=== PATIENT | male | born 1955 | race Caucasian/White ===

== ENCOUNTER 2016-09-19 14:04 | Inpatient (IN) ==
[2016-09-19] MEDS ORDERED: ASPIRIN 325 MG TABLET PO STA (14:35)
[2016-09-19] MEDS ORDERED: METOPROLOL TARTRATE 5 MG/5 ML VIAL IV STA (14:35)
--- NOTE | 2016-09-19 14:55 | Emergency Department Note ---
Jordy Bryant Brittany, am scribing for, and in the presence of, Reno Cabrales MD 14: 43. Samra Bryant James D, MD, personally performed the services described in this documentation, ascribed by Martha Spence in my presence, and it is both accurate and complete 449 . Arrival - Arrival Chief Complaint: Chest Pain Stated Complaint: n/v; weakness; chest pain; back pain ED Nursing Triage Note: Patient arrived via ems with complaint of n/v, weakness , chest pain, and back pain. Patient states he has chronic back pain. States he stopped taking suboxone due to vomiting. States his mid-sternal chest pain started hurting while at [facility]. Patient reports diaphoresis and nausea with chest pain. Describes pain as a sharp pain. Rates pain 8 out of 10 on pain scale. Mode of Arrival: Stretcher Limitations: No Limitations Source: Patient, RN Notes Reviewed Time Seen by Provider: 09/19/16 14:25 - History of Present Illness HPI Narrative: This is a 60 y/o white male,who presents to the ED with c/o CP which started 1 week ago. He localizes the pain to the mid sternum area of the chest. He describes the pain as a sharp pain. He reports the pain is worse with movement. Pt also complains of nausea and vomiting as well. He states he stopped taking his Suboxonedue to the vomiting. He states the vomiting started 10 days ago. Pt has no other complaints/pain in the ED at this time. Pt has a PMHx of HTN, CHF, CAD, cardiovascular problems, IDDM, dyslipidemia, GERD, back/neck problems, Polyps, and GI problems. Pt has had a cardiac cath, colonoscopy, orthopedic surgery. Pt denies a family medical Hx. Pt is a current every day smoker, he states he smokes 1/2 PPD. Onset (ago): week(s) (Started 1 week ago) Consistency: constant Quality: sharp Allergies/Adverse Reactions: Allergies Allergy/AdvReac Type Severity Reaction Status Date / Time Penicillins Allergy Verified 01/27/16 08:24 Home Medications: Home Medications Medication Instructions Recorded Confirmed Type Atorvastatin [Lipitor] 20 mg PO BEDTIME 01/27/16 09/19/16 History Cholecalciferol (Vitamin D3) 1,000 unit PO DAILY 01/27/16 09/19/16 History [Vitamin D3] Insulin Glargine [Lantus] 30 unit SUBCUT BEDTIME 01/27/16 09/19/16 History Lisinopril/Hydrochlorothiazide 0.5 each PO BID 01/27/16 09/19/16 History [Lisinopril-Hctz 20-12.5 mg Tab] [place]-3 Fatty Acids [Fish Oil 2 tablet PO DAILY 01/27/16 09/19/16 History Concentrate] Ondansetron Odt Tab [Zofran Odt] 4 mg PO Q6H PRN 01/27/16 09/19/16 History metFORMIN [Glucophage] 1,000 mg PO BID 01/27/16 09/19/16 History Aspirin [Ecotrin] 81 mg PO DAILY 09/19/16 09/19/16 History Insulin Regular, Human [NovoLIN R] See Protocol SUBCUT DAILY 09/19/16 09/19/16 History Montelukast Tab [Singulair Tab] 10 mg PO BID 09/19/16 09/19/16 History Review of System - Review of System 12 point system: reviewed and no additional remarkable complaints except as stated - Review of System Cardiovascular: Present: chest pain Gastrointestinal: Present: nausea, vomiting Medical,Surgical,& Family Hx - Medical History Cardio: History of: CHF, CAD, Hypertension, Cardiovascular Problems Psychological: History of: Anxiety Disorders, Depression Neurology: No history of: Seizures Endocrine: History of: Diabetes Mellitus (IDDM), Dyslipidemia Genitourinary: No history of: Kidney Stones Gastrointestinal: History of: GERD, Polyps, GI Problems (dysphagia) Musculoskeletal: History of: Back/Neck Problems (chronic back pain) Hematology: No history of: Blood Transfusion Reaction Other: No history of: Anesthesia Reactions, Cancer - Surgical History Cardiac Surgeries: Sugical HX of: Cardiac Surgery Patient Denies: Cardiac Catheterization HEENT Surgeries: Patient denies: Tonsilectomy & Adenoidectomy Abdominal Surgeries: Surgical HX of: Colonoscopy Patient denies: Appendectomy, Cholecystectomy Orthopedic Surgeries: Surgical HX of;: Orthopedic Surgery (shoulder x 2,knee scope,foot) - Social History Smoking Status: Current every day smoker Frequency of Alcohol Use: None Type of Drug Use: None Exam Vital Signs: Vital Signs Temperature 97.7 F 09/19/16 14:05 Pulse Rate 110 H 03/20/17 14:05 Respiratory Rate 13 09/19/16 14:05 Blood Pressure 123/77 09/19/16 14:05 O2 Sat by Pulse Oximetry 96 09/19/16 14:05 GENERAL: This is a chronically ill-appearing white male in no apparent distress. VITAL SIGNS: Reviewed HEENT: Head is atraumatic and normocephalic. Pupils are equal round react to light. Extraocular movements are intact. Oropharynx is benign with moist mucous membranes. NECK: Neck is soft and supple without tenderness. There are no masses. There is no lymphadenopathy. LUNGS: Lungs are clear to auscultation. Chest rises symmetrically. There is no chest wall tenderness. CV: Heart is rapid rate, regular rhythm without murmurs rubs or gallops. ABDOMEN: Abdomen is soft, nontender to palpation. There are no abdominal abnormal masses palpated. There is no organomegaly. Bowel sounds are present and active. SKIN: Skin is warm and dry. No rash. EXTREMITIES: Patient has full range of motion without tenderness. There is no pedal edema. NEUROLOGIC: Awake alert and oriented 4. Cranial nerves II through XII are grossly intact. Motor is 5 over 5 in all extremities bilaterally. Course - Consultations Consultation #1: Discussed with hospitalist. Patient will be admitted to their service. Time: 15:47 Results - Labs Lab Results: I have reviewed the patients labs Labs: Labs performed at [facility] and reviewed by me: Chemistry: Sodium 131, potassium 3.9, chloride 90, CO2 27, BUN 28, creatinine 0.63, lipase 35, magnesium 1.8, Troponin I: 0.12 CBC: WBCs 24,300, hemoglobin 17.4, hematocrit 48.1, platelet count 151,000, segs 75%, bands 15%, lymphocytes 8% - EKG EKG results: interpreted by ERMD - Impressions EKG: Sinus tachycardia with a rate of 108, nonspecific intraventricular conduction delay, left axis deviation, nonspecific ST-T wave changes. - Diagnostic Findings Procedure: Chest x-ray: image reviewed by me Disposition Clinical Impression: Coronary artery disease, Chest pain, Chronic pain syndrome, Diabetes mellitus Case discussed with: patient Disposition: Still a Patient Condition: Stable Time of Disposition: 15:46
[2016-09-19] MEDS ORDERED: ENOXAPARIN 80 MG/0.8 ML SYRINGE SUBCUT STA (15:03)
[2016-09-19] MEDS ORDERED: ONDANSETRON 4 MG/2 ML VIAL IV STA (15:03)
[2016-09-19] MEDS ORDERED: KETOROLAC 30 MG/1 ML VIAL IV STA (15:04)
[2016-09-19] MEDS ORDERED: ONDANSETRON 4 MG/2 ML VIAL ONE (15:19)
[2016-09-19] MEDS ORDERED: ENOXAPARIN 80 MG/0.8 ML SYRINGE SUBCUT ONE (15:19)
[2016-09-19] MEDS ORDERED: ASPIRIN 325 MG TABLET ONE (15:20)
[2016-09-19] MEDS ORDERED: METOPROLOL TARTRATE 5 MG/5 ML VIAL IV ONE (15:20)
[2016-09-19] MEDS ORDERED: KETOROLAC 30 MG/1 ML VIAL ONE (15:20)
[2016-09-19 15:35] LABS: Barbiturates Screen,Urine Negative (Negative); Benzodiazepines Screen,Urine Negative (Negative); Cannabinoid Screen,Urine Negative (Negative); Opiate Screen,Urine Negative (Negative); Phencyclidine Screen,Urine Negative (Negative)
[2016-09-19] MEDS ORDERED: DOCUSATE SODIUM 100 MG CAPSULE PO PRN (16:16)
[2016-09-19] MEDS ORDERED: ONDANSETRON 4 MG/2 ML VIAL IV PRN (16:16)
[2016-09-19] MEDS ORDERED: ACETAMINOPHEN 325 MG TABLET PO PRN (16:16)
[2016-09-19] MEDS ORDERED: MORPHINE 2 MG/1 ML SYRINGE IV PRN (16:16)
[2016-09-19 16:39] LABS: Risk Ratio 5.08; VLDL CHOLESTEROL 44.8 MG/DL
[2016-09-19] MEDS ORDERED: ONDANSETRON ODT 4 MG TABLET PO PRN (16:39)
[2016-09-19] MEDS ORDERED: PANTOPRAZOLE 40 MG TABLET PO ONE (16:40)
[2016-09-19] MEDS: SODIUM CHLORIDE 0.9% 1,000 ML IV SCH (16:46)
[2016-09-19] MEDS: PANTOPRAZOLE 40 MG TABLET PO SCH (16:49)
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
--- NOTE | 2016-09-19 18:07 | Ultrasound Report ---
US gallbladder Indication: Nausea/vomiting/right upper quadrant pain. Comparison: None. Technique: Multiple longitudinal and transverse real-time sonographic images of the right upper quadrant of the abdomen are obtained. Findings: The liver measures 21.6 cm and demonstrates increased echogenicity without focal abnormality. Moderate volume cholelithiasis. No significant gallbladder distention. The common duct measures 0.8 cm in diameter and there is no evidence of intrahepatic ductal dilation. Right kidney measures 12.6 cm. There is an exophytic complex cystic lesion off the superior pole of the right kidney which measures up to 5.8 cm with at least one septation measuring greater than 2 mm. Pancreas partially obscured by bowel gas. IMPRESSION: Hepatomegaly/hepatic steatosis. Cholelithiasis. There is mild prominence of the distal common duct. Consider ERCP or MRCP for further evaluation. There is a complex right renal cystic lesion which measures up to 5.8 cm. Recommend further evaluation with CT or MRI abdomen with and without contrast. This can be done on a nonemergent basis. PROCEDURE INTERPRETED AT [facility] DEPARTMENT OF RADIOLOGY Final Report Signed by: Dr Craig Eden
[2016-09-19] MEDS: metFORMIN 500 MG TABLET PO SCH (23:27)
[2016-09-19] MEDS: ATORVASTATIN 20 MG TABLET PO SCH (23:27)
[2016-09-19] MEDS: INSULIN GLARGINE 100 UNIT/ML SUBCUT SCH (23:27)
[2016-09-19] MEDS: MONTELUKAST 10 MG TABLET PO SCH (23:28)
[2016-09-19] MEDS: LISINOPRIL/HCTZ 20-12.5 MG TABLET PO SCH (23:28)
[2016-09-20 05:04] LABS: Basophils % 0.1 % (0.0-0.8); Hematocrit 44.7 VOL% (42.0-52.0); Hemoglobin 15.7 GM/DL (14.0-18.0); Immature Granulocytes % 0.5 %; Immature Granulocytes Absolute 0.08 #; Lymphocytes # 1.2 10*3/uL (1.4-4.0); Lymphocytes % 7.6 % (21.2-54.2); Mean Corpuscular HGB Conc 35.1 GM/DL (32-36); Mean Corpuscular Hemoglobin 27 PG (27-34); Mean Corpuscular Volume 78.1 FL (87-102); Monocytes # 1.2 10*3/uL (0.11-0.8); Monocytes % 7.8 % (1.7-12.7); Neutrophils # 12.8 10*3/uL (1.4-7.4); Platelet Count 121 T/CUMM (130-400); Red Blood Count 5.72 MC/CUMM (3.8-5.5); Red Cell Distribution Width 14.3 % (9.3-17.3); White Blood Count 15.2 T/CUMM (4-12)
[2016-09-20 05:27] LABS: Calcium 9.1 MG/DL (8.5-10.1); Magnesium 1.9 MG/DL (1.8-2.4); Osmolality,Calculated 290.7 MOS/KG (273-304); Potassium 3.4 MMOL/L (3.5-5.1)
[2016-09-20] MEDS: OMEGA 3 ACID ETHYL ESTERS 1 GM CAPSULE PO SCH ×3 (07:01→09:25)
[2016-09-20] MEDS: ASPIRIN EC 81 MG TABLET PO SCH ×2 (07:01→09:22)
[2016-09-20] MEDS: CHOLECALCIFEROL 1,000 UNIT TABLET PO SCH ×2 (07:01→09:22)
[2016-09-20] MEDS: INSULIN REGULAR 100 UNIT/ML SUBCUT SCH ×2 (07:02→09:29)
--- NOTE | 2016-09-20 07:38 | EKG Report ---
Stationary ECG Study [facility] ER Test Date: 09/19/2016 2:32:45 PM Pat Name: JACLYN MILTON Department: Room: 289 Gender: M Filling Winder: : 1955 Requested by: Reno Hahn Order Number: [id number] Reading MD: NISHA YOST Intervals [place] Rate: 108 P: -28 AR: 157 QRS: -69 QRSD: 146 T: 135 QT: 359 QTc: 423 Interpretive Statements SINUS TACHYCARDIA WITH OCCASIONAL VENTRICULAR PREMATURE COMPLEXES LBBB POSSIBLE LATERAL MYOCARDIAL INFARCTION, OF INDETERMINATE AGE INFERIOR MYOCARDIAL INFARCTION, OF INDETERMINATE AGE Electronically Signed On 09-20-16 14:11:52 CDT by NISHA YOST [email or web address]
[2016-09-20] MEDS: MONTELUKAST 10 MG TABLET PO SCH ×2 (09:21→20:45)
[2016-09-20] MEDS: metFORMIN 500 MG TABLET PO SCH ×2 (09:22→20:44)
[2016-09-20] MEDS: LISINOPRIL/HCTZ 20-12.5 MG TABLET PO SCH ×2 (09:22→20:43)
[2016-09-20] MEDS: PANTOPRAZOLE 40 MG TABLET PO SCH (09:22)
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
[2016-09-20] MEDS: SODIUM CHLORIDE 0.9% 1,000 ML IV SCH ×3 (09:30→23:28)
--- NOTE | 2016-09-20 10:12 | EKG Report ---
Stationary ECG Study [facility] Test Date: 09/20/2016 10:06:44 AM Pat Name: JACLYN MILTON Department: Room: 289 Gender: M Manager Configuration: GUSTAVO : 1955 Requested by: Cony Crocker Order Number: [id number] Reading MD: NISHA YOST Intervals [place] Rate: 83 P: 40 [place]: 147 QRS: 54 QRSD: 145 T: 164 QT: 402 QTc: 442 Interpretive Statements SINUS RHYTHM LBBB Electronically Signed On 09-21-16 20:49:46 CDT by NISHA YOST [email or web address]
[2016-09-20 10:25] LABS: Troponin I Only 0.116 NG/ML (0.00-0.045)
[2016-09-20 10:41] LABS: Albumin 2.7 G/DL (3.4-5.0); Bilirubin,Direct 0.1 MG/DL (0.0-0.20); Bilirubin,Indirect 0.3 MG/DL (0.0-1.0); Bilirubin,Total 0.4 MG/DL (0.2-1.0); Total Protein 5.4 G/DL (6.4-8.3)
[2016-09-20 12:31] LABS: Troponin I Only 0.116 NG/ML (0.00-0.045)
--- NOTE | 2016-09-20 14:22 | Hospitalist Progress Note ---
Assessment and Plan - Time spent with patient Time spent with patient: Greater than 30 minutes (1) Chest pain Status: Acute Assessment and plan: Cardiology is involved. Troponins are mildly elevated. Current Visit: Yes (2) Elevated troponin I level Status: Acute Assessment and plan: Defer to cardiology appreciate their assistance. Current Visit: Yes (3) Right upper quadrant pain Status: Acute Assessment and plan: Ultrasound reveals mildly elevated CBD size. Will obtain an MRCP. Current Visit: Yes (4) Coronary artery disease Status: Chronic Assessment and plan: Continue current management. Current Visit: Yes (5) Diabetes mellitus Status: Chronic Assessment and plan: Continue current management. Current Visit: Yes Hospitalist: Subjective Interval history: Patient reports that he still has right upper quadrant abdominal pain, spent the next 5 minutes talking about his pain regimen at home. Appears very comfortable. States he has not eaten for several days. Exam - Constitutional Vitals: Period Temp Pulse Resp BP Sys/Medel Pulse Ox Last 24 Hr 97.9 F-100.4 F 66-109 12-20 105-147/63-93 95-100 General appearance: no acute distress - Head Head exam: Present: normocephalic, atraumatic - Eye Eye exam: Present: EOMI Pupils: Present: GEMA - ENT ENT exam: Present: normal exam - Neck Neck exam: Present: normal inspection - Respiratory Respiratory exam: Present: clear to auscultation bilaterally. Absent: rhonchi, wheezes - Cardiovascular Cardiovascular exam: Present: regular rate and rhythm. Absent: gallop, rubs, systolic murmur - GI/Abdominal GI/Abdominal exam: Present: normal bowel sounds, tenderness, soft. Absent: distended, firm, guarding, rebound - Extremities Exam Extremities exam: Present: normal inspection. Absent: calf tenderness, edema Results - Labs CBC & BMP: 09/20/16 04:41 09/20/16 04:41 Lab Results: I have reviewed the past 24 hour labs Quality Measures - Stroke Symptom Onset Unknown: No
[2016-09-20] MEDS: HYDROmorphone 2 MG/1 ML VIAL IV PRN ×3 (14:36→23:43)
[2016-09-20] MEDS: POTASSIUM CHLORIDE RIDER 10 MEQ in PREMIX 1 EACH IV SCH ×3 (14:41→17:57)
--- NOTE | 2016-09-20 15:12 | XRay Report ---
XR chest 1V portable Indication: Chest pain, leukocytosis Comparison: 26 September 2012 Findings: The heart and mediastinum are stable in size and configuration with cardiac surgery changes. The pulmonary vascularity is normal in caliber. Lung volumes are increased with prominent bronchial markings. No lung infiltrates, effusions, pneumothorax or other abnormality is demonstrated. Impression: Chronic lung and cardiac surgery changes. No acute process or significant change. PROCEDURE INTERPRETED AT [facility] DEPARTMENT OF RADIOLOGY Final Report Signed by: Dr. Hernesto Chamberlain
[2016-09-20 15:56] LABS: Troponin I Only 0.103 NG/ML (0.00-0.045)
[2016-09-20] MEDS: CARVEDILOL 3.125 MG TABLET PO SCH ×2 (16:28→20:44)
--- NOTE | 2016-09-20 16:31 | Magnetic Resonance Report ---
MRI abdomen Indication: Abnormal common bile duct next Technique: Axial, sagittal and coronal imaging of the abdomen was performed without contrast. Computer reformatting of the biliary system is generated. Findings: Few calculi are seen in the dependent gallbladder. Gallbladder otherwise appears normal for MRI. No distinct hepatic or pancreatic lesions are seen. The pancreas evaluation somewhat limited from breathing motion artifact. There is suggestion of some edema around the pancreas. Biliary duct caliber is estimated 7 mm and appears within normal limits. The pancreatic duct also shows no evidence of abnormality and measures estimated 1 mm. There is a cyst in the right kidney. The remainder of the kidneys that are visualized appear within normal limits. Impression: Cholelithiasis. Simple-appearing right renal cyst. Pancreas detail is limited but there is suggestion of edema around the pancreas. No other abnormality seen. Correlate with CT to evaluate for pancreatitis. PROCEDURE INTERPRETED AT [facility] DEPARTMENT OF RADIOLOGY Final Report Signed by: Dr. Hernesto Chamberlain
--- NOTE | 2016-09-20 16:50 | ECHO Report ---
Omer Crandall Exam Date: 09/20/2016 09:28 Referring Physician: Technologist: Danielle RANGEL Age: 60 Ht (in): Wt (lb): Gender: M Exam Location: [facility] Echo Indications: chest pain, diabetes, elevated troponin, CAD BP: / HR: Rhythm: Sinus Technical Quality: Good IMPRESSIONS Moderate to 3+ concentric left ventricular hypertrophy with diastolic dysfunction. Left ventricular ejection fraction is estimated at 30-40 %. The right atrium is mildly enlarged. The left atrium is mildly to 2+ enlarged. Mild to moderate mitral valve sclerosis. Trace mitral valve regurgitation. Mild aortic valve sclerosis. Trace aortic valve regurgitation. Trace tricuspid valve regurgitation. Trace pulmonary valve regurgitation. MEASUREMENTS (Male / Female) Normal Values 2D ECHO LV Diastolic Diameter PLAX 5.3 cm 4.2 - 5.9 / 3.9 - 5.3 cm LV Systolic Diameter PLAX 4.2 cm LV Fractional Shortening PLAX 20.3 % IVS Diastolic Thickness 1.8 cm 0.6 - 1.0 / 0.6 - 0.9 cm LVPW Diastolic Thickness 1.5 cm 0.6 - 1.0 / 0.6 - 0.9 cm RV Internal Dim ED PLAX 3.4 cm Aortic Root Diameter 2.8 cm LA Systolic Diameter LX 4.0 cm 3.0 - 4.0 / 2.7 - 3.8 cm DOPPLER TR Peak Velocity 115.0 cm/s TR Peak Gradient 5.3 mmHg FINDINGS Left Ventricle Mildly increased left ventricular cavity size. Moderate to 3+ concentric left ventricular hypertrophy with diastolic dysfunction. Left ventricular ejection fraction is estimated at 30-40 %. Right Ventricle borderline Mildly increased right ventricular size. Right Atrium The right atrium is mildly enlarged. Left Atrium The left atrium is mildly to 2+ enlarged. Mitral Valve Mild to moderate mitral valve sclerosis. Trace mitral valve regurgitation. Aortic Valve Mild aaortic valve sclerosis. Trace aortic valve regurgitation. Tricuspid Valve Morphologically normal tricuspid valve. Trace tricuspid valve regurgitation. Pulmonic Valve Morphologically normal pulmonic valve. Trace pulmonary valve regurgitation. Pericardium No pericardial effusion. Aorta Normal size aortic root and proximal ascending aorta. Pablo King MD (Electronically Signed) Final Date: 20 September 2016 16:49
[2016-09-20] MEDS: ATORVASTATIN 20 MG TABLET PO SCH (20:44)
[2016-09-20] MEDS: INSULIN GLARGINE 100 UNIT/ML SUBCUT SCH (20:44)
[2016-09-21] MEDS: CARVEDILOL 3.125 MG TABLET PO SCH ×4 (03:58→20:41)
[2016-09-21] MEDS: HYDROmorphone 2 MG/1 ML VIAL IV PRN ×5 (03:58→20:38)
[2016-09-21] MEDS: SODIUM CHLORIDE 0.9% 1,000 ML IV SCH ×4 (05:04→23:25)
[2016-09-21 05:06] LABS: Basophils % 0.2 % (0.0-0.8); Eosinophils # 0.1 10*3/uL (0.0-0.87); Eosinophils % 0.5 % (0.00-10.9); Hematocrit 40.6 VOL% (42.0-52.0); Hemoglobin 13.9 GM/DL (14.0-18.0); Immature Granulocytes % 0.4 %; Immature Granulocytes Absolute 0.04 #; Lymphocytes # 1.1 10*3/uL (1.4-4.0); Lymphocytes % 10.6 % (21.2-54.2); Mean Corpuscular HGB Conc 34.2 GM/DL (32-36); Mean Corpuscular Hemoglobin 28 PG (27-34); Mean Platelet Volume 11.2 FL (9.6-12.0); Monocytes # 0.9 10*3/uL (0.11-0.8); Monocytes % 8.1 % (1.7-12.7); Neutrophils # 8.6 10*3/uL (1.4-7.4); Neutrophils % 80.2 % (38.7-73.9); Platelet Count 111 T/CUMM (130-400); Red Blood Count 5.01 MC/CUMM (3.8-5.5); Red Cell Distribution Width 14.4 % (9.3-17.3); White Blood Count 10.7 T/CUMM (4-12)
[2016-09-21 05:47] LABS: Calcium 8.6 MG/DL (8.5-10.1); Magnesium 1.8 MG/DL (1.8-2.4); Osmolality,Calculated 291.4 MOS/KG (273-304); Potassium 3.4 MMOL/L (3.5-5.1)
--- NOTE | 2016-09-21 07:33 | EKG Report ---
Stationary ECG Study [facility] Test Date: 09/21/2016 7:33:28 AM Pat Name: JACLYN MILTON Department: Room: 289 Gender: M [employer] Sales Director: DORIS : 1955 Requested by: Pablo King Order Number: [id number] Reading MD: MARY MENDOSA Intervals [place] Rate: 76 P: -8 [place]: 153 QRS: -48 QRSD: 150 T: 150 QT: 392 QTc: 423 Interpretive Statements SINUS RHYTHM WITH OCCASIONAL VENTRICULAR PREMATURE COMPLEXES Atypical LBBB Repol changes suggestive of ischemia Electronically Signed On 09-22-16 21:03:12 CDT by MARY MENDOSA [id number]
[2016-09-21] MEDS: ASPIRIN EC 81 MG TABLET PO SCH (08:24)
[2016-09-21] MEDS: LISINOPRIL/HCTZ 20-12.5 MG TABLET PO SCH ×2 (08:24→20:43)
[2016-09-21] MEDS: CHOLECALCIFEROL 1,000 UNIT TABLET PO SCH (08:24)
[2016-09-21] MEDS: metFORMIN 500 MG TABLET PO SCH ×2 (08:25→21:11)
[2016-09-21] MEDS: MONTELUKAST 10 MG TABLET PO SCH ×2 (08:26→20:44)
[2016-09-21] MEDS: PANTOPRAZOLE 40 MG TABLET PO SCH (08:26)
[2016-09-21] MEDS: OMEGA 3 ACID ETHYL ESTERS 1 GM CAPSULE PO SCH (08:27)
[2016-09-21] MEDS: INSULIN REGULAR 100 UNIT/ML SUBCUT SCH (08:28)
--- NOTE | 2016-09-21 11:12 | Gastrointestinal Consult Note ---
<KeithmikaSunni Jovani - Last Filed: 09/21/16 11:03> Assessment and Plan (1) Abdominal pain Status: Acute Assessment and plan: 09/21-Sudden onset of right upper quadrant pain with intractable nausea and vomiting 2 weeks. Findings on ultrasound of cholelithiasis and mildly dilated common bile duct. MRCP findings noted of cholelithiasis. Normal LFTs at present time. Surgery has been consulted by Dr. king. Plan an addendum to follow by Dr. Barcenas Current Visit: Yes History of Present Illness Chief complaint: Nausea, vomiting, abdominal pain History of present illness: Mr. Crandall is a 60 year old male who presented to the hospital 2 days ago with chest pain. Patient has a history of diabetes, coronary artery disease with CABG 10 years ago, chronic pain issues, and hypertension. Patient states that 2 weeks ago he had a sudden onset of intractable nausea and vomiting. States that he was unable to keep anything down and every time he tried to eat he would vomit. Patient states he vomited up large amounts of bile and at times black looking emesis but denies any blood noted during that time. Patient also had onset of right upper quadrant abdominal pain that he states was severe at times. Since onset he has lost 20 pounds due to inability to eat. He is treated by Dr. Jesus in [place] for his chronic pain and was on Suboxone therapy however states he stopped this he began his nausea and vomiting. Patient states he had problems with his gallbladder 15 years ago and he was to have it removed however he decided not to do it at that time. He states the pain he has had is very similar to the pain he had 15 years ago. Patient does report an increase in his reflux over the last several months despite taking his Protonix regularly. Denies taking NSAIDs regularly other than occasional Motrin. Denies melena or hematochezia. Denies dysphagia. On admission he had mildly elevated troponin levels however cardiology consulted with the patient and feels this is noncardiac related at this time. Dr. King his also stated patient okay to proceed with surgical intervention if necessary. Gallbladder ultrasound shows hepatomegaly, cholelithiasis, and mild prominent common bile duct at 8 mm. He also had an MRCP on yesterday which showed cholelithiasis with common bile duct at 7 mm and no distinct ductal abnormality. Suggestion of pancreatic edema mentioned. Patient's liver enzymes noted to be normal on yesterday however no admitting liver enzymes noted at our facility are at [facility] where patient was seen prior to being transferred here. Patient states he has had recent upper and lower endoscopy done at [place] through the [place] and was told to return in 5 years for repeat colonoscopy. Home Medications Medication Instructions Recorded Confirmed Type Atorvastatin [Lipitor] 20 mg PO BEDTIME 01/27/16 09/19/16 History Cholecalciferol (Vitamin D3) 1,000 unit PO DAILY 01/27/16 09/19/16 History [Vitamin D3] Insulin Glargine [Lantus] 30 unit SUBCUT BEDTIME 01/27/16 09/19/16 History Lisinopril/Hydrochlorothiazide 0.5 each PO BID 01/27/16 09/19/16 History [Lisinopril-Hctz 20-12.5 mg Tab] [place]-3 Fatty Acids [Fish Oil 2 tablet PO DAILY 01/27/16 09/19/16 History Concentrate] Ondansetron Odt Tab [Zofran Odt] 4 mg PO Q6H PRN 01/27/16 09/19/16 History metFORMIN [Glucophage] 1,000 mg PO BID 01/27/16 09/19/16 History Aspirin [Ecotrin] 81 mg PO DAILY 09/19/16 09/19/16 History Insulin Regular, Human [NovoLIN R] See Protocol SUBCUT DAILY 09/19/16 09/19/16 History Montelukast Tab [Singulair Tab] 10 mg PO BID 09/19/16 09/19/16 History Allergies Allergy/AdvReac Type Severity Reaction Status Date / Time Penicillins Allergy Verified 01/27/16 08:24 Medical,Surgical,& Family Hx - Medical History Cardio: History of: CHF, CAD, Hypertension, Cardiovascular Problems Psychological: History of: Anxiety Disorders, Depression Neurology: No history of: Seizures Endocrine: History of: Diabetes Mellitus (IDDM), Dyslipidemia Genitourinary: No history of: Kidney Stones Gastrointestinal: History of: GERD, Polyps, GI Problems (dysphagia) Musculoskeletal: History of: Back/Neck Problems (chronic back pain) No history of: Amputation Hematology: No history of: Blood Transfusion Reaction Other: No history of: Anesthesia Reactions, Cancer - Surgical History Cardiac Surgeries: Sugical HX of: Cardiac Surgery Patient Denies: Cardiac Catheterization Thoracic Surgeries: Patient denies;: Lobectomy HEENT Surgeries: Patient denies: Tonsilectomy & Adenoidectomy Abdominal Surgeries: Surgical HX of: Colonoscopy Patient denies: Appendectomy, Cholecystectomy Reproductive Surgeries: Patient denies;: Genitourinary Surgery Orthopedic Surgeries: Surgical HX of;: Orthopedic Surgery (shoulder x 2,knee scope,foot) - Social History Smoking Status: Current every day smoker Frequency of Alcohol Use: None Type of Drug Use: None 12 point system: reviewed and no additional remarkable complaints except as stated - Constitutional Constitutional: Present: as per HPI, weight loss - EENT Eyes: Present: as per HPI Ears: Present: as per HPI Nose, mouth and throat: Present: as per HPI - Cardiovascular Cardiovascular: Present: as per HPI - Respiratory Respiratory: Present: as per HPI - Gastrointestinal Gastrointestinal: Present: as per HPI, abdominal pain, heartburn, nausea, vomiting - Genitourinary Genitourinary: Present: as per HPI - Musculoskeletal Musculoskeletal: Present: as per HPI, back pain - Neurological Neurological: Present: as per HPI - Psychiatric Psychiatric: Present: as per HPI - Endocrine Endocrine: Present: as per HPI - Hematologic/Lymphatic Hematologic/Lymphatic: Present: as per HPI Exam - Constitutional Vitals: Period Temp Pulse Resp BP Sys/Medel Pulse Ox Last 24 Hr 97.9 F-99.2 F 74-101 18-20 109-152/53-74 93-96 General appearance: normal weight, no acute distress - Head Head exam: Present: normal inspection, normocephalic - Eye Eye exam: Present: other (Lids and conjunctivae unremarkable). Absent: scleral icterus - ENT ENT exam: Present: normal exam, normal oropharynx - Neck Neck exam: Present: normal inspection - Respiratory Respiratory exam: Present: clear to auscultation bilaterally. Absent: rales, rhonchi, wheezes - Cardiovascular Cardiovascular exam: Present: regular rate and rhythm. Absent: diastolic murmur , JVD, systolic murmur - GI/Abdominal GI/Abdominal exam: Present: normal bowel sounds, tenderness (Right upper quadrant), soft. Absent: ascites, distended, mass, organomegaly - Extremities Exam Extremities exam: Present: normal inspection, full ROM - Back Exam Back exam: Present: normal inspection - Neurological Exam Neurological exam: Present: alert, oriented X3 - Psychiatric Psychiatric exam: Present: normal affect, normal mood - Skin Skin exam: Present: normal color, warm, dry Results - Labs CBC & BMP: 09/21/16 04:57 09/21/16 04:57 Lab Results: I have reviewed the past 24 hour labs - Diagnostic Findings Procedure: MRI: report reviewed by me, Ultrasound: report reviewed by me Quality Measures - Stroke Symptom Onset Unknown: No <Chapo Barcenas - Last Filed: 09/21/16 12:41> History of Present Illness History of present illness: Mr. Crandall is a 60 year old male Exam - Constitutional Vitals: Period Temp Pulse Resp BP Sys/Medel Pulse Ox Last 24 Hr 97.9 F-99.2 F 74-101 18-20 109-152/53-74 93-98 Results - Labs CBC & BMP: 09/21/16 04:57 09/21/16 04:57
--- NOTE | 2016-09-21 11:30 | Cardiology Progress Note ---
Assessment and Plan - Time spent with patient Time spent with patient: Less than 30 minutes (1) Elevated troponin I level Status: Acute Assessment and plan: His troponin in series, are flat. This is not ACS. Potassium is low. We will place him on potassium and magnesium replacement protocol. Current Visit: Yes (2) Right upper quadrant pain Status: Acute Assessment and plan: Hospital medicine following. Cholelithiasis and hepatomegaly/hepatic steatosis noted on abdominal ultrasound. We consulted GI and general surgery this morning to see him. We appreciate their input. Current Visit: Yes (3) History of ischemic cardiomyopathy Status: Chronic Assessment and plan: Last documented ejection fraction was 10/27/07 with EF of 20%. Patient has not followed with Dr. Mejia since 2009. He has a previous history of noncompliance per his old records. Repeat echocardiogram on 09/20/2016 revealed EF is improved 30-40%. He was also noted to have moderate to 3+ concentric left ventricular hypertrophy with diastolic dysfunction, mildly enlarged right atrium, mild to 2+ enlargement of left atrium, mild to moderate mitral valve sclerosis, trace mitral regurgitation , mild aortic sclerosis, trace aortic, tricuspid, and pulmonic regurgitation. 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 Storm on 05/22/07. Current Visit: Yes (5) Coronary artery disease Status: Chronic Assessment and plan: Patient underwent CABG x2 with TRISTEN to anterior descending coronary artery and a SVG to right posterior descending coronary artery by Dr. Storm on 05/22/07. Current Visit: Yes (6) GERD (gastroesophageal reflux disease) Status: Chronic Assessment and plan: Continue Protonix. Hospital medicine following. GI has been consulted. Current Visit: Yes (7) Chronic hypertension Status: Chronic Assessment and plan: Currently well controlled. Will monitor and adjust medications as needed. Current Visit: Yes (8) Chronic pain syndrome Status: Chronic Assessment and plan: This is managed by Dr. Jesus in [place]. Will defer further treatment to hospital medicine. Current Visit: Yes (9) Diabetes mellitus Status: Chronic Assessment and plan: Has had elevated blood sugar readings. Is on sliding scale insulin. Hospital medicine following. Current Visit: Yes (10) Tobacco abuse Status: Chronic Current Visit: Yes Cardiology - PN: Subj Interval history: Mr. Raz reports he did not have a restful night. He reports his back hurt all throughout the night. He tells me that his nausea is a little better. He was able to eat a full supper last night. I suspect he has cholelithiasis. His troponin in series, are flat. This is not ACS. His EF is improved from 20% to 30-40% per echo done yesterday. He was also noted to have moderate to 3+ concentric left ventricular hypertrophy with diastolic dysfunction, mildly enlarged right atrium, mild to 2+ enlargement of left atrium, mild to moderate mitral valve sclerosis, trace mitral regurgitation, mild aortic sclerosis, trace aortic, tricuspid, and pulmonic regurgitation. If the patient needs to undergo gallbladder surgery soon, okay from cardiology standpoint. We have consulted GI and general surgery to see him today. We appreciate their input. Exam (Progress Note) - Constitutional Vitals: Period Temp Pulse Resp BP Sys/Medel Pulse Ox Last 24 Hr 97.9 F-99.2 F 74-101 18-20 109-152/53-74 93-96 Exam: General: Present: Appears Well, No Apparent Distress. Pleasant and cooperative. Appears uncomfortable due to nausea. HEENT: Present: PERRL, Normocephaly, atraumatic. Mucus Membranes Moist. Conjunctiva moist and clear, sclerae anicteric Neck: Present: Supple Neck, Midline Trachea, No Masses, No Bruit Cardiac: Present: Regular Rate and Rhythm, No Murmur Lungs: Present: Clear to auscultation bilaterally, no wheeze, rhonchi, rales. Neuro: Present: Awake, alert, and oriented x3. Moves all extremities well without hemiparesis or paralysis. Grossly Intact. Absent: Resting Tremor, Essential Tremor Abdomen: Present: Soft, Active Bowel Sounds, No Masses, epigastric and right upper quadrant tenderness noted. Skin: Present: Clear. Absent: Rash, No skin breakdown. Musculoskeletal: Present: No Fluid Collection, No Pain, Normal Range of Motion Extremities: Present: Normal Gait, No Clubbing, No Cyanosis, Upper Extr. Pulses 2+, Lower Extr. Pulses 2+, No edema. Capillary refill less than 3 seconds. Result/EKG - Labs CBC & BMP: 09/21/16 04:57 09/21/16 04:57 Lab Results: I have reviewed the past 24 hour labs Labs: Laboratory Results - last 24 hr 09/20/16 09/20/16 09/20/16 11:46 11:50 15:04 WBC RBC Hgb Hct MCV MCH MCHC RDW Plt Count MPV Neut % (Auto) Lymph % (Auto) [place] % (Auto) Eos % (Auto) Baso % (Auto) Neut # (Auto) Lymph # (Auto) [place] # (Auto) Eos # (Auto) Baso # (Auto) Immature Gran % Nucleated RBC % Immature Gran # Nucleated RBCs # Sodium Potassium Chloride Carbon Dioxide Anion Gap BUN Creatinine GFR Calculation BUN/Creatinine Ratio Glucose POC Glucose 222 H Calculated Osmolality Calcium Magnesium Total Creatine Kinase 23 L 26 L CK-MB (CK-2) 2.1 2.3 Troponin I 0.116 H 0.103 H 09/20/16 09/21/16 09/21/16 20:34 04:57 04:57 WBC 10.7 RBC 5.01 Hgb 13.9 L Hct 40.6 L MCV 81.0 L MCH 28 MCHC 34.2 RDW 14.4 Plt Count 111 L MPV 11.2 Neut % (Auto) 80.2 H Lymph % (Auto) 10.6 L [place] % (Auto) 8.1 Eos % (Auto) 0.5 Baso % (Auto) 0.2 Neut # (Auto) 8.6 H Lymph # (Auto) 1.1 L [place] # (Auto) 0.9 H Eos # (Auto) 0.1 Baso # (Auto) 0.0 Immature Gran % 0.4 Nucleated RBC % 0.0 Immature Gran # 0.04 Nucleated RBCs # 0.00 Sodium 140 Potassium 3.4 L Chloride 102 Carbon Dioxide 26 Anion Gap 15.4 H BUN 19 H Creatinine 0.70 GFR Calculation 118 BUN/Creatinine Ratio 27.00 H Glucose 305 H POC Glucose 296 H Calculated Osmolality 291.4 Calcium 8.6 Magnesium 1.8 Total Creatine Kinase CK-MB (CK-2) Troponin I 09/21/16 07:52 WBC RBC Hgb Hct MCV MCH MCHC RDW Plt Count MPV Neut % (Auto) Lymph % (Auto) [place] % (Auto) Eos % (Auto) Baso % (Auto) Neut # (Auto) Lymph # (Auto) [place] # (Auto) Eos # (Auto) Baso # (Auto) Immature Gran % Nucleated RBC % Immature Gran # Nucleated RBCs # Sodium Potassium Chloride Carbon Dioxide Anion Gap BUN Creatinine GFR Calculation BUN/Creatinine Ratio Glucose POC Glucose 255 H Calculated Osmolality Calcium Magnesium Total Creatine Kinase CK-MB (CK-2) Troponin I - EKG EKG results: interpreted by me, sinus rhythm Quality Measures - Stroke Symptom Onset Unknown: No
[2016-09-21] MEDS ORDERED: POTASSIUM CHLORIDE 20 MEQ TABLET PO PRN (11:33)
[2016-09-21] MEDS ORDERED: MAGNESIUM SULF RIDER 2 GM in PREMIX 1 EACH IV PRN (11:33)
[2016-09-21] MEDS ORDERED: MAGNESIUM SULF RIDER 4 GM in PREMIX 1 EACH IV PRN (11:33)
--- NOTE | 2016-09-21 14:05 | Hospitalist Progress Note ---
Assessment and Plan - Time spent with patient Time spent with patient: Greater than 30 minutes (1) Chest pain Status: Acute Assessment and plan: Appreciate evaluation by cardiology. Current Visit: Yes (2) Elevated troponin I level Status: Acute Assessment and plan: Defer to cardiology appreciate their assistance. Current Visit: Yes (3) Right upper quadrant pain Status: Acute Assessment and plan: Ultrasound reveals mildly elevated CBD size. MRCP reveals slightly inflamed pancreas. Lipase and amylase are negative. Gastroenterology is on board. Current Visit: Yes (4) Coronary artery disease Status: Chronic Assessment and plan: Continue current management. Current Visit: Yes (5) Diabetes mellitus Status: Chronic Assessment and plan: Continue current management. Current Visit: Yes Hospitalist: Subjective Interval history: Patient has no complaints this morning. No overnight events. Exam - Constitutional Vitals: Period Temp Pulse Resp BP Sys/Medel Pulse Ox Last 24 Hr 97.9 F-99.2 F 74-101 18-20 109-152/53-74 93-98 General appearance: no acute distress - Head Head exam: Present: normocephalic, atraumatic - Eye Eye exam: Present: EOMI Pupils: Present: GEMA - ENT ENT exam: Present: normal exam - Neck Neck exam: Present: normal inspection - Respiratory Respiratory exam: Present: clear to auscultation bilaterally. Absent: rhonchi, wheezes - Cardiovascular Cardiovascular exam: Present: regular rate and rhythm. Absent: gallop, rubs, systolic murmur - GI/Abdominal GI/Abdominal exam: Present: normal bowel sounds, soft. Absent: distended, firm , guarding, tenderness, rebound - Extremities Exam Extremities exam: Present: normal inspection. Absent: calf tenderness, edema Results - Labs CBC & BMP: 09/21/16 04:57 09/21/16 04:57 Lab Results: I have reviewed the past 24 hour labs Quality Measures - Stroke Symptom Onset Unknown: No
[2016-09-21] MEDS ORDERED: ZALEPLON 5 MG CAPSULE PO PRN (15:41)
--- NOTE | 2016-09-21 16:38 | General Surgery Consult Note ---
Assessment and Plan - Time spent with patient Time spent with patient: Less than 30 minutes (1) Right upper quadrant pain Status: Acute Assessment and plan: This appears consistent with chronic cholecystitis and patient relates a past history of gallstones. He was told in the past to consider cholecystectomy but did not have this done. He states that this feels like the same symptoms that he had in the past. He is certainly at risk for peptic ulcer disease or gastritis and a upper endoscopy was planned. I will follow the results of endoscopy and plan whether or not cholecystectomy is indicated. Certainly he is at increased risk for complications with surgery because this multiple medical comorbidities Current Visit: Yes History of Present Illness Chief complaint: abdominal pain. History of present illness: Mr. Crandall is a 60 year old male Was over a week of vague upper abdominal pain mostly epigastric and was in his chest but now seems to be more in his right upper water. This is accompanied occasionally by some nausea. He states it is worse with deep breathing and movement. He has not had jaundice. He apparently had what was felt to be a dilated bile duct on MRI but there was no obstructive lesions and he had normal liver function tests. He has planned upper endoscopy tomorrow by Dr. Barcenas. Home Medications Medication Instructions Recorded Confirmed Type Atorvastatin [Lipitor] 20 mg PO BEDTIME 01/27/16 09/19/16 History Cholecalciferol (Vitamin D3) 1,000 unit PO DAILY 01/27/16 09/19/16 History [Vitamin D3] Insulin Glargine [Lantus] 30 unit SUBCUT BEDTIME 01/27/16 09/19/16 History Lisinopril/Hydrochlorothiazide 0.5 each PO BID 01/27/16 09/19/16 History [Lisinopril-Hctz 20-12.5 mg Tab] [place]-3 Fatty Acids [Fish Oil 2 tablet PO DAILY 01/27/16 09/19/16 History Concentrate] Ondansetron Odt Tab [Zofran Odt] 4 mg PO Q6H PRN 01/27/16 09/19/16 History metFORMIN [Glucophage] 1,000 mg PO BID 01/27/16 09/19/16 History Aspirin [Ecotrin] 81 mg PO DAILY 09/19/16 09/19/16 History Insulin Regular, Human [NovoLIN R] See Protocol SUBCUT DAILY 09/19/16 09/19/16 History Montelukast Tab [Singulair Tab] 10 mg PO BID 09/19/16 09/19/16 History ALPRAZolam [Xanax] 0.25 mg PO Q6H PRN 09/21/16 09/21/16 History Promethazine Tab [Phenergan Tab] 25 mg PO Q6H PRN 09/21/16 09/21/16 History Zolpidem [Ambien] 5 mg PO BEDTIME PRN 09/21/16 09/21/16 History Allergies Allergy/AdvReac Type Severity Reaction Status Date / Time Penicillins Allergy Verified 01/27/16 08:24 Medical,Surgical,& Family Hx - Medical History Cardio: History of: CHF, CAD, Hypertension, Cardiovascular Problems Psychological: History of: Anxiety Disorders, Depression Neurology: No history of: Seizures Endocrine: History of: Diabetes Mellitus (IDDM), Dyslipidemia Genitourinary: No history of: Kidney Stones Gastrointestinal: History of: GERD, Polyps, GI Problems (dysphagia) Musculoskeletal: History of: Back/Neck Problems (chronic back pain) No history of: Amputation Hematology: No history of: Blood Transfusion Reaction Other: No history of: Anesthesia Reactions, Cancer - Surgical History Cardiac Surgeries: Sugical HX of: Cardiac Surgery Patient Denies: Cardiac Catheterization Thoracic Surgeries: Patient denies;: Lobectomy HEENT Surgeries: Patient denies: Tonsilectomy & Adenoidectomy Abdominal Surgeries: Surgical HX of: Colonoscopy Patient denies: Appendectomy, Cholecystectomy Reproductive Surgeries: Patient denies;: Genitourinary Surgery Orthopedic Surgeries: Surgical HX of;: Orthopedic Surgery (shoulder x 2,knee scope,foot) - Social History Smoking Status: Current every day smoker Frequency of Alcohol Use: None Type of Drug Use: None - Constitutional Constitutional: Present: weight loss. Absent: anorexia, chills, fever(s) - Cardiovascular Cardiovascular: Absent: chest pain at rest, chest pain with activity, dyspnea, dyspnea on exertion, syncope - Respiratory Respiratory: Absent: cough, dyspnea, hemoptysis, dyspnea on exertion - Gastrointestinal Gastrointestinal: Present: abdominal pain, nausea. Absent: hematemesis, hematochezia, vomiting, jaundice - Genitourinary Genitourinary: Absent: hematuria - Musculoskeletal Musculoskeletal: Present: back pain - Neurological Neurological: Absent: focal weakness, syncope - Endocrine Endocrine: Absent: polyuria Hematologic/Lymphatic: Absent: easy bruising Exam - Constitutional Vitals: Period Temp Pulse Resp BP Sys/Medel Pulse Ox Last 24 Hr 97.7 F-99.2 F 74-101 18-20 103-152/53-74 93-100 General appearance: no acute distress - Head Head exam: Present: normocephalic - Eye Eye exam: Absent: scleral icterus - ENT Mouth exam: Present: normal voice - Neck Neck exam: Present: trachea midline - Respiratory Respiratory exam: Present: clear to auscultation bilaterally. Absent: accessory muscle use - Cardiovascular Cardiovascular exam: Present: RRR - GI/Abdominal GI/Abdominal exam: Present: soft. Absent: distended, guarding, mass, Marques's sign, tenderness, rebound - Extremities Exam Extremities exam: Absent: edema - Neurological Exam Neurological exam: Present: alert, oriented X3. Absent: motor sensory deficit Speech: Present: normal - Skin Skin exam: Present: normal color Quality Measures - Stroke Symptom Onset Unknown: No Results - Labs CBC & BMP: 09/21/16 04:57 09/21/16 04:57 Lab Results: I have reviewed the past 24 hour labs
[2016-09-21] MEDS: PROMETHAZINE 25 MG TABLET PO PRN (18:32)
[2016-09-21] MEDS: ATORVASTATIN 20 MG TABLET PO SCH (20:42)
[2016-09-21] MEDS: INSULIN GLARGINE 100 UNIT/ML SUBCUT SCH (21:10)
[2016-09-22] MEDS: HYDROmorphone 2 MG/1 ML VIAL IV PRN ×5 (01:47→19:59)
[2016-09-22 05:09] LABS: Basophils % 0.2 % (0.0-0.8); Eosinophils # 0.1 10*3/uL (0.0-0.87); Eosinophils % 1.3 % (0.00-10.9); Hemoglobin 14.3 GM/DL (14.0-18.0); Immature Granulocytes % 0.4 %; Immature Granulocytes Absolute 0.04 #; Lymphocytes # 1.5 10*3/uL (1.4-4.0); Lymphocytes % 16.2 % (21.2-54.2); Mean Corpuscular HGB Conc 34.9 GM/DL (32-36); Mean Corpuscular Hemoglobin 27 PG (27-34); Mean Corpuscular Volume 78.7 FL (87-102); Mean Platelet Volume 10.9 FL (9.6-12.0); Monocytes # 0.7 10*3/uL (0.11-0.8); Monocytes % 7.5 % (1.7-12.7); Neutrophils % 74.4 % (38.7-73.9); Platelet Count 131 T/CUMM (130-400); Red Blood Count 5.21 MC/CUMM (3.8-5.5); White Blood Count 9.5 T/CUMM (4-12)
[2016-09-22 05:37] LABS: Calcium 8.9 MG/DL (8.5-10.1); Osmolality,Calculated 294.8 MOS/KG (273-304); Potassium 3.3 MMOL/L (3.5-5.1)
[2016-09-22] MEDS: SODIUM CHLORIDE 0.9% 1,000 ML IV SCH ×2 (06:32→13:57)
[2016-09-22] MEDS: CARVEDILOL 3.125 MG TABLET PO SCH ×3 (07:01→14:07)
[2016-09-22] MEDS ORDERED: LISINOPRIL 2.5 MG TABLET PO SCH (09:00)
[2016-09-22] MEDS ORDERED: fentaNYL 100 MCG/2 ML VIAL ONE (10:01)
[2016-09-22] MEDS ORDERED: LIDOCAINE 1% 5 ML VIAL ONE (10:05)
[2016-09-22] MEDS ORDERED: PROPOFOL 200 MG/20 ML VIAL IV ONE (10:05)
--- NOTE | 2016-09-22 10:08 | History and Physical Update ---
History and Physical Update - Physical Exam Mental Status: alert and oriented Heart: regular rate and rhythm Lung: clear to auscultation Abdomen: within normal limits Vitals: within normal limits
--- NOTE | 2016-09-22 10:29 | Operative Note ---
Date of procedure: 09/22/16 Pre-op diagnosis: Abdominal pain Procedure: EGD with biopsy 60-year-old gentleman with persistent abdominal pain no suspected symptomatic cholelithiasis now for EGD to further evaluate. He does take frequent nonsteroidals. Informed consent was obtained the patient He was sedated with MAC anesthesia per anesthesia protocol. Patient placed in left lateral decubitus position the Olympus flexible video upper endoscope was inserted into the oral cavity under direct vision the esophagus was intubated. Findings: Esophagus-diffuse erosive esophagitis seen essentially throughout the entire esophagus. No mass lesions were seen no varices were seen. No clear Joiner's was observed however the severe erosive findings with limited visibility for this. Stomach-normal insufflation there is acute antral erosive gastritis biopsies were taken otherwise normal to direct and retroflexed views of the body, fundus , cardia of the stomach. Biopsies were taken. Pylorus-normal Duodenum-diffuse ulceration from the bulb of the duodenum into the third portion of the duodenum. No visible vessels no active bleeding noted. The scope was removed without difficulty patient our procedure well his discharge recovery in good condition Postop diagnosis: 1. Erosive esophagitis-start IV Protonix 40 mg twice daily. We will plan repeat EGD in approximately 2 months to exclude underlying Joiner's. 2. Erosive gastritis-IV Protonix as above 3. Acute duodenal ulceration-as above if biopsies positive for H. pylori will treat. 4. Would recommend against proceeding with cholecystectomy at this time until mucosal healing has occurred. 5. Potassium is low and I would avoid oral potassium substitute with his erosive esophagitis and will order IV potassium replacement. Anesthesia: MAC Surgeon / Physician: Chapo Barcenas Estimated blood loss: none Specimens: other (Erosive gastritis) Condition: stable Disposition: post procedure unit Results - Labs CBC & BMP: 09/22/16 04:57 09/22/16 04:57 Discharge Plan - Discharge Medications No Action Ondansetron Odt Tab [Zofran Odt] 4 mg PO Q6H PRN PRN Reason: Nausea Cholecalciferol (Vitamin D3) [Vitamin D3] 1,000 unit PO DAILY Insulin Glargine [Lantus] 30 unit SUBCUT BEDTIME metFORMIN [Glucophage] 1,000 mg PO BID [place]-3 Fatty Acids [Fish Oil Concentrate] 2 tablet PO DAILY Lisinopril/Hydrochlorothiazide [Lisinopril-Hctz 20-12.5 mg Tab] 0.5 each PO BID Atorvastatin [Lipitor] 20 mg PO BEDTIME Montelukast Tab [Singulair Tab] 10 mg PO BID Aspirin [Ecotrin] 81 mg PO DAILY Insulin Regular, Human [NovoLIN R] See Protocol SUBCUT DAILY ALPRAZolam [Xanax] 0.25 mg PO Q6H PRN PRN Reason: Anxiety Zolpidem [Ambien] 5 mg PO BEDTIME PRN PRN Reason: Sleep Promethazine Tab [Phenergan Tab] 25 mg PO Q6H PRN PRN Reason: Nausea - Follow Up or Referral - Forms/Instructions
--- NOTE | 2016-09-22 10:33 | Anesthesia ---
Anesthesia Post OP - Post Ansesthetic Evaluation Patient seen in post op: Yes Resp: within normal limits CV: within normal limits Mental: within normal limits Temp: within normal limits [id number]: within normal limits Nausea and Vomiting: within normal limits Pain: within normal limits
--- NOTE | 2016-09-22 10:42 | Hospitalist Progress Note ---
Assessment and Plan - Time spent with patient Time spent with patient: Greater than 30 minutes (1) Chest pain Status: Acute Assessment and plan: Appreciate evaluation by cardiology. Current Visit: Yes (2) Elevated troponin I level Status: Acute Assessment and plan: Defer to cardiology appreciate their assistance. Current Visit: Yes (3) Right upper quadrant pain Status: Acute Assessment and plan: Ultrasound reveals mildly elevated CBD size. MRCP reveals slightly inflamed pancreas. Lipase and amylase are negative. Gastroenterology is on board. Surgery is on board. Current Visit: Yes (4) Coronary artery disease Status: Chronic Assessment and plan: Continue current management. Current Visit: Yes (5) Diabetes mellitus Status: Chronic Assessment and plan: Continue current management. Current Visit: Yes (6) Esophagitis Status: Acute Assessment and plan: Continue PPI evaluate for pathology. Holding off and cholecystectomy. Current Visit: Yes Hospitalist: Subjective Interval history: So the patient prior to his EGD which was completed at time of this note. Patient has no complaints no overnight events. Exam - Constitutional Vitals: Period Temp Pulse Resp BP Sys/Medel Pulse Ox Last 24 Hr 97.5 F-98.9 F 68-92 14-20 103-163/55-83 94-100 General appearance: no acute distress - Head Head exam: Present: normocephalic, atraumatic - Eye Eye exam: Present: EOMI Pupils: Present: GEMA - ENT ENT exam: Present: normal exam - Neck Neck exam: Present: normal inspection - Respiratory Respiratory exam: Present: clear to auscultation bilaterally. Absent: rhonchi, wheezes - Cardiovascular Cardiovascular exam: Present: regular rate and rhythm. Absent: gallop, rubs, systolic murmur - GI/Abdominal GI/Abdominal exam: Present: normal bowel sounds, soft. Absent: distended, firm , guarding, tenderness, rebound - Extremities Exam Extremities exam: Present: normal inspection. Absent: calf tenderness, edema Results - Labs CBC & BMP: 09/22/16 04:57 09/22/16 04:57 Lab Results: I have reviewed the past 24 hour labs Quality Measures - Stroke Symptom Onset Unknown: No
[2016-09-22] MEDS: POTASSIUM CHLORIDE RIDER 10 MEQ in PREMIX 1 EACH IV SCH ×5 (11:34→17:43)
[2016-09-22] MEDS: PANTOPRAZOLE 40 MG VIAL IV SCH ×2 (11:34→20:06)
--- NOTE | 2016-09-22 12:30 | Cardiology Progress Note ---
Assessment and Plan - Time spent with patient Time spent with patient: Less than 30 minutes (1) Elevated troponin I level Status: Acute Assessment and plan: His troponin in series, are flat. This is not ACS. Potassium is low. He is on IV potassium and magnesium replacement protocol. Current Visit: Yes (2) Right upper quadrant pain Status: Acute Assessment and plan: Hospital medicine following. He underwent EGD with Dr. Barcenas this morning and was found to have erosive gastritis. Is recommended to hold off on cholecystectomy until mucosal healing has occurred. Surgery is following. Current Visit: Yes (3) History of ischemic cardiomyopathy Status: Chronic Assessment and plan: Last documented ejection fraction was 10/27/07 with EF of 20%. Patient has not followed with Dr. Mejia since 2009. He has a previous history of noncompliance per his old records. Repeat echocardiogram on 09/20/2016 revealed EF is improved 30-40%. He was also noted to have moderate to 3+ concentric left ventricular hypertrophy with diastolic dysfunction, mildly enlarged right atrium, mild to 2+ enlargement of left atrium, mild to moderate mitral valve sclerosis, trace mitral regurgitation , mild aortic sclerosis, trace aortic, tricuspid, and pulmonic regurgitation. 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 Storm on 05/22/07. Current Visit: Yes (5) Coronary artery disease Status: Chronic Assessment and plan: Patient underwent CABG x2 with TRISTEN to anterior descending coronary artery and a SVG to right posterior descending coronary artery by Dr. Storm on 05/22/07. Current Visit: Yes (6) GERD (gastroesophageal reflux disease) Status: Chronic Assessment and plan: Underwent EGD this morning. Protonix changed to 40 mg IV twice daily. Narinder plans to repeat EGD in approximately 2 months to exclude underlying Joiner's. Current Visit: Yes (7) Chronic hypertension Status: Chronic Assessment and plan: Borderline today with a couple of elevated readings. Lisinopril was decreased yesterday due to hypotension. He received Lisinopril 2.5mg this morning. Will increase this dose to 5mg daily. He is on Coreg 3.125mg PO Q6H. Dr. King to follow with further plan and addendum. Current Visit: Yes (8) Chronic pain syndrome Status: Chronic Assessment and plan: This is managed by Dr. Jesus in [place]. Will defer further treatment to hospital medicine. Current Visit: Yes (9) Diabetes mellitus Status: Chronic Assessment and plan: Has had elevated blood sugar readings. Is on sliding scale insulin. Hospital medicine following. Current Visit: Yes (10) Tobacco abuse Status: Chronic Current Visit: Yes Cardiology - PN: Subj Interval history: Mr. Crandall underwent EGD today with Dr. Barcenas and was found to have erosive gastritis, acute duodenal ulceration. He was started on IV Protonix twice daily. It was recommended to hold of on cholecystectomy for now. He has been changed from PO potassium to IV due to his erosive esophagitis. He denies any cardiac complaints today. Blood pressure is borderline today. His Lisinopril was reduced yesterday. We will continue to monitor. He may need further adjustment of his medications. He continues to be in sinus rhythm with well controlled rate. H&H is stable. Potassium is 3.3 today. IV potassium is currently infusing. Creatinine 0.6. Exam (Progress Note) - Constitutional Vitals: Period Temp Pulse Resp BP Sys/Medel Pulse Ox Last 24 Hr 97.5 F-98.9 F 68-92 14-20 103-163/55-83 94-100 Exam: General: Present: Appears Well, No Apparent Distress. Pleasant and cooperative. Appears uncomfortable due to nausea. HEENT: Present: PERRL, Normocephaly, atraumatic. Mucus Membranes Moist. Conjunctiva moist and clear, sclerae anicteric Neck: Present: Supple Neck, Midline Trachea, No Masses, No Bruit Cardiac: Present: Regular Rate and Rhythm, No Murmur Lungs: Present: Clear to auscultation bilaterally, no wheeze, rhonchi, rales. Neuro: Present: Awake, alert, and oriented x3. Moves all extremities well without hemiparesis or paralysis. Grossly Intact. Absent: Resting Tremor, Essential Tremor Abdomen: Present: Soft, Active Bowel Sounds, No Masses, epigastric and right upper quadrant tenderness noted. Skin: Present: Clear. Absent: Rash, No skin breakdown. Musculoskeletal: Present: No Fluid Collection, No Pain, Normal Range of Motion Extremities: Present: Normal Gait, No Clubbing, No Cyanosis, Upper Extr. Pulses 2+, Lower Extr. Pulses 2+, No edema. Capillary refill less than 3 seconds. Result/EKG - Labs CBC & BMP: 09/22/16 04:57 09/22/16 04:57 Lab Results: I have reviewed the past 24 hour labs Labs: Laboratory Results - last 24 hr 09/21/16 09/21/16 09/21/16 04:55 11:52 19:58 WBC RBC Hgb Hct MCV MCH MCHC RDW Plt Count MPV Neut % (Auto) Lymph % (Auto) Boyle % (Auto) Eos % (Auto) Baso % (Auto) Neut # (Auto) Lymph # (Auto) Boyle # (Auto) Eos # (Auto) Baso # (Auto) Immature Gran % Nucleated RBC % Immature Gran # Nucleated RBCs # Sodium Potassium Chloride Carbon Dioxide Anion Gap BUN Creatinine GFR Calculation BUN/Creatinine Ratio Glucose POC Glucose 151 H 222 H Calculated Osmolality Calcium Amylase 17 L Lipase 93.0 09/22/16 09/22/16 09/22/16 04:57 04:57 07:34 WBC 9.5 RBC 5.21 Hgb 14.3 Hct 41.0 L MCV 78.7 L MCH 27 MCHC 34.9 RDW 14.0 Plt Count 131 MPV 10.9 Neut % (Auto) 74.4 H Lymph % (Auto) 16.2 L Boyle % (Auto) 7.5 Eos % (Auto) 1.3 Baso % (Auto) 0.2 Neut # (Auto) 7.0 Lymph # (Auto) 1.5 Boyle # (Auto) 0.7 Eos # (Auto) 0.1 Baso # (Auto) 0.0 Immature Gran % 0.4 Nucleated RBC % 0.0 Immature Gran # 0.04 Nucleated RBCs # 0.00 Sodium 144 Potassium 3.3 L Chloride 103 Carbon Dioxide 30 Anion Gap 14.3 BUN 12 Creatinine 0.60 L GFR Calculation 125 BUN/Creatinine Ratio 20.00 Glucose 265 H POC Glucose 251 H Calculated Osmolality 294.8 Calcium 8.9 Amylase Lipase 09/22/16 11:31 WBC RBC Hgb Hct MCV MCH MCHC RDW Plt Count MPV Neut % (Auto) Lymph % (Auto) Boyle % (Auto) Eos % (Auto) Baso % (Auto) Neut # (Auto) Lymph # (Auto) Boyle # (Auto) Eos # (Auto) Baso # (Auto) Immature Gran % Nucleated RBC % Immature Gran # Nucleated RBCs # Sodium Potassium Chloride Carbon Dioxide Anion Gap BUN Creatinine GFR Calculation BUN/Creatinine Ratio Glucose POC Glucose 220 H Calculated Osmolality Calcium Amylase Lipase - EKG EKG results: interpreted by me, sinus rhythm Quality Measures - Stroke Symptom Onset Unknown: No
[2016-09-22] MEDS: MONTELUKAST 10 MG TABLET PO SCH ×2 (13:40→20:01)
[2016-09-22] MEDS: ASPIRIN EC 81 MG TABLET PO SCH (13:40)
[2016-09-22] MEDS: metFORMIN 500 MG TABLET PO SCH ×2 (13:40→20:05)
[2016-09-22] MEDS: CHOLECALCIFEROL 1,000 UNIT TABLET PO SCH (13:40)
[2016-09-22] MEDS: OMEGA 3 ACID ETHYL ESTERS 1 GM CAPSULE PO SCH (13:41)
[2016-09-22] MEDS: LISINOPRIL 5 MG TABLET PO SCH (13:41)
[2016-09-22] MEDS: PANTOPRAZOLE 40 MG TABLET PO SCH (13:42)
[2016-09-22] MEDS: INSULIN REGULAR 100 UNIT/ML SUBCUT SCH ×2 (13:57→17:42)
--- NOTE | 2016-09-22 16:23 | General Surgery Progress Note ---
Assessment and Plan (1) Right upper quadrant pain Status: Acute Assessment and plan: This appears consistent with chronic cholecystitis and patient relates a past history of gallstones. He was told in the past to consider cholecystectomy but did not have this done. He states that this feels like the same symptoms that he had in the past. He is certainly at risk for peptic ulcer disease or gastritis and a upper endoscopy was planned. I will follow the results of endoscopy and plan whether or not cholecystectomy is indicated. Certainly he is at increased risk for complications with surgery because this multiple medical comorbidities 09/22: I discussed his endoscopic findings with Dr. Barcenas and also with the patient. He has extensive esophagitis and this is probably the source of his symptoms. I agree that we should hold off cholecystectomy at this point. I will be happy to see him back in follow-up in the office for his gallstones. Current Visit: Yes Subjective Patient reports: Present: feels better, pain is less. Absent: nausea, vomiting , shortness of breath, fever Exam - Constitutional Vitals: Period Temp Pulse Resp BP Sys/Medel Pulse Ox Last 24 Hr 97.5 F-98.9 F 68-92 14-20 118-163/55-83 94-100 General appearance: no acute distress - Head Head exam: Present: normal inspection - ENT Mouth exam: Present: normal voice - Respiratory Respiratory exam: Absent: accessory muscle use - GI/Abdominal GI/Abdominal exam: Present: soft. Absent: distended, tenderness, rebound Results - Labs CBC & BMP: 09/22/16 04:57 09/22/16 04:57 Lab Results: I have reviewed the past 24 hour labs Quality Measures - Stroke Symptom Onset Unknown: No
[2016-09-22] MEDS: INSULIN GLARGINE 100 UNIT/ML SUBCUT SCH (20:03)
[2016-09-22] MEDS: ATORVASTATIN 20 MG TABLET PO SCH (20:04)
[2016-09-22] MEDS: CARVEDILOL 12.5 MG TABLET PO SCH (20:06)
[2016-09-22] MEDS: PROMETHAZINE 25 MG TABLET PO PRN (20:10)
[2016-09-23] MEDS: INSULIN REGULAR 100 UNIT/ML SUBCUT SCH ×3 (00:46→12:17)
[2016-09-23] MEDS: HYDROmorphone 2 MG/1 ML VIAL IV PRN ×2 (02:06→09:52)
--- NOTE | 2016-09-23 09:27 | Gastrointestinal Progress Note ---
<KeithmikaSunni Jovani - Last Filed: 09/23/16 09:25> Assessment and Plan (1) Abdominal pain Status: Acute Assessment and plan: 09/23-EGD findings noted. Complaints of dysphagia this morning. EGD results discussed with patient. Continue on Protonix twice daily. Will need repeat EGD in 2 months. H. pylori pathology pending this morning. Plan an addendum to follow by Dr. Barcenas. 09/21-Sudden onset of right upper quadrant pain with intractable nausea and vomiting 2 weeks. Findings on ultrasound of cholelithiasis and mildly dilated common bile duct. MRCP findings noted of cholelithiasis. Normal LFTs at present time. Surgery has been consulted by Dr. tomas. Plan an addendum to follow by Dr. Barcenas Gastroenterology - PN: Subj Interval history: CC: Abdominal pain Patient seen sitting up in bed awake and alert. States he is having some difficulty with eating this morning with some dysphagia noted. States he has not really had difficulty with this until the past couple of days. EGD findings on yesterday noted with erosive esophagitis, erosive gastritis, and duodenal ulceration. Abdomen is soft, nontender. Denies nausea or vomiting. Tolerating small amounts of his diet. Biopsy report pending from yesterday. Patient states he has been compliant with his Protonix for the past year but does state he has had significant reflux symptoms despite taking this. Next review of systems: Denies shortness of breath or chest pain Exam (Progress Note) - Constitutional Vitals: Period Temp Pulse Resp BP Sys/Medel Pulse Ox Last 24 Hr 97.9 F-98.9 F 68-97 14-20 118-190/55-82 93-100 General appearance: normal weight, no acute distress - Head Head exam: Present: normal inspection, normocephalic - Eye Eye exam: Present: other (Lids and conjunctivae unremarkable). Absent: scleral icterus - ENT ENT exam: Present: normal exam, normal oropharynx - Neck Neck exam: Present: normal inspection - Respiratory Respiratory exam: Present: clear to auscultation bilaterally. Absent: rales, rhonchi, wheezes - Cardiovascular Cardiovascular exam: Present: regular rate and rhythm. Absent: diastolic murmur , JVD, systolic murmur - GI/Abdominal GI/Abdominal exam: Present: normal bowel sounds, soft. Absent: ascites, distended, mass, organomegaly, tenderness - Extremities Exam Extremities exam: Present: normal inspection, full ROM - Back Exam Back exam: Present: normal inspection - Neurological Exam Neurological exam: Present: alert, oriented X3 - Psychiatric Psychiatric exam: Present: normal affect, normal mood - Skin Skin exam: Present: normal color, warm, dry Results - Labs CBC & BMP: 09/22/16 04:57 09/22/16 04:57 Lab Results: I have reviewed the past 24 hour labs Specialty Discharge - Follow Up or Referrals Follow up with: Pablo Tomas MD [Physician] - 11/03/16 12:50 pm <Chapo Barcenas - Last Filed: 11/09/16 11:24> Results - Labs CBC & BMP: 09/22/16 04:57 09/22/16 04:57
[2016-09-23] MEDS: ASPIRIN EC 81 MG TABLET PO SCH (11:12)
[2016-09-23] MEDS: CARVEDILOL 12.5 MG TABLET PO SCH (11:12)
[2016-09-23] MEDS: metFORMIN 500 MG TABLET PO SCH (11:12)
[2016-09-23] MEDS: LISINOPRIL 5 MG TABLET PO SCH (11:13)
[2016-09-23] MEDS: MONTELUKAST 10 MG TABLET PO SCH (11:13)
[2016-09-23] MEDS: CHOLECALCIFEROL 1,000 UNIT TABLET PO SCH (11:14)
[2016-09-23] MEDS: OMEGA 3 ACID ETHYL ESTERS 1 GM CAPSULE PO SCH (11:15)
[2016-09-23] MEDS: PANTOPRAZOLE 40 MG VIAL IV SCH (11:21)
[2016-09-23] MEDS: PROMETHAZINE 25 MG TABLET PO PRN (11:25)
--- NOTE | 2016-09-23 11:53 | Pathology Report from [facility] ---
ACCESSION # : [id number] PATIENT NAME : Jaclyn Crandall ORDERING DR : DANIEL PERDOMO MD CLINICAL HX: Abdominal pain, suspected symptomatic cholelithiasis POST-OP DX: Same SPECIMEN INFO: Gastric biopsy GROSS DESCRIPTION: Received in formalin labeled "JACLYN CRANDALL" is a 0.5 x 0.2 cm aggregate of saldana tissue submitted in one cassette. DIAGNOSIS FOR JACLYN CRANDALL: GASTRIC BIOPSY: Acute erosive gastritis. H. pylori not seen on special stain. SERVICE DATE: 09/22/2016 REPORT DATE: 09/23/2016 PATHOLOGIST: Chris Bernal M.D. [facility]
[2016-09-23 11:55] VITALS: BP 165/82
[2016-09-23] MEDS: PANTOPRAZOLE 40 MG TABLET PO SCH (12:11)
--- NOTE | 2016-09-23 15:04 | Hospitalist Progress Note ---
Assessment and Plan (1) Chest pain Status: Acute Assessment and plan: Appreciate evaluation by cardiology. Current Visit: Yes (2) Elevated troponin I level Status: Acute Assessment and plan: Defer to cardiology appreciate their assistance. Current Visit: Yes (3) Right upper quadrant pain Status: Acute Assessment and plan: Ultrasound reveals mildly elevated CBD size. MRCP reveals slightly inflamed pancreas. Lipase and amylase are negative. Gastroenterology is on board. Surgery is on board. Current Visit: Yes (4) Coronary artery disease Status: Chronic Assessment and plan: Continue current management. Current Visit: Yes (5) Diabetes mellitus Status: Chronic Assessment and plan: Continue current management. Current Visit: Yes (6) Esophagitis Status: Acute Assessment and plan: Continue PPI evaluate for pathology. Holding off and cholecystectomy. Current Visit: Yes Exam - Constitutional Vitals: Period Temp Pulse Resp BP Sys/Medel Pulse Ox Last 24 Hr 97.0 F-98.9 F 73-97 14-20 143-190/68-82 93-99 Results - Labs CBC & BMP: 09/22/16 04:57 09/22/16 04:57 Quality Measures - Stroke Symptom Onset Unknown: No Specialty Discharge - Follow Up or Referrals Follow up with: Pablo King MD [Physician] - 11/03/16 12:50 pm
--- NOTE | 2016-09-23 15:08 | Cardiology Progress Note ---
Assessment and Plan - Time spent with patient Time spent with patient: Less than 30 minutes (1) Elevated troponin I level Status: Acute Assessment and plan: 09/20/16: Patient has right upper quadrant tenderness, nausea and vomiting and a gallbladder ultrasound which shows gallstones. Also dilated common bile duct. My suspicion is that he has choledocholithiasis. His troponin in series, are flat. This is not ACS. Potassium is low. We will replete potassium. In the course of the evaluation, it was decided the patient needed to have an echocardiogram for the pts management. It was ordered. I will review it. If the patient needs to undergo gallbladder surgery soon, okay from my standpoint. 09/21/16: The patient has right upper quadrant pain. He will undergo E scope evaluate for peptic ulcer disease. If negative we are considering cholecystectomy. Meanwhile his echo showed moderate LV systolic dysfunction. With his borderline low blood pressure I have reduced his lisinopril and will continue the carvedilol. Most would be good for his LV systolic dysfunction. Will recheck electrolytes, BUN, and creatinine in the a.m. 09/22/16: Is tolerating the cardiac meds well. His heart rate remains in the 80s. Will increase the carvedilol to 12.5 mg p.o. twice daily. Also that he is ago noted some gastritis. Apparently, per the patient, and that is in light of taking Protonix presume 40 mg p.o. twice daily. The plan would be to treat this GI findings and see if his symptoms resolve then to decide about cholecystectomy or not. I agree with the plan. If he needs surgery, on these medications, his cardiac risk is low. 09/23/16: His troponin in series, are flat. This is not ACS. He is being discharged by hospital medicine today and has an appointment to see Dr. King in clinic on 11/03/16. Current Visit: Yes (2) Right upper quadrant pain Status: Acute Assessment and plan: Hospital medicine following. He underwent EGD with Dr. Barcenas yesterday and was found to have erosive gastritis. Is recommended to hold off on cholecystectomy until mucosal healing has occurred. Surgery is following. Current Visit: Yes (3) History of ischemic cardiomyopathy Status: Chronic Assessment and plan: Last documented ejection fraction was 10/27/07 with EF of 20%. Patient has not followed with Dr. Mejia since 2009. He has a previous history of noncompliance per his old records. Repeat echocardiogram on 09/20/2016 revealed EF is improved 30-40%. He was also noted to have moderate to 3+ concentric left ventricular hypertrophy with diastolic dysfunction, mildly enlarged right atrium, mild to 2+ enlargement of left atrium, mild to moderate mitral valve sclerosis, trace mitral regurgitation , mild aortic sclerosis, trace aortic, tricuspid, and pulmonic regurgitation. 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 Storm on 05/22/07. Current Visit: Yes (5) Coronary artery disease Status: Chronic Assessment and plan: Patient underwent CABG x2 with TRISTEN to anterior descending coronary artery and a SVG to right posterior descending coronary artery by Dr. Storm on 05/22/07. Current Visit: Yes (6) GERD (gastroesophageal reflux disease) Status: Chronic Assessment and plan: Underwent EGD yesterday. He has been receiving Protonix 40mg IV BID. Dr. Barcenas plans to repeat EGD in approximately 2 months to exclude underlying Joiner's. Current Visit: Yes (7) Chronic hypertension Status: Chronic Assessment and plan: Borderline today with a couple of elevated readings. Lisinopril was decreased yesterday due to hypotension. He received Lisinopril 2.5mg this morning. Will increase this dose to 5mg daily. His coreg was increased to 12.5mg PO BID. Dr. King to follow with further plan and addendum. Current Visit: Yes (8) Chronic pain syndrome Status: Chronic Assessment and plan: This is managed by Dr. Jesus in [place]. Will defer further treatment to hospital medicine. Current Visit: Yes (9) Diabetes mellitus Status: Chronic Assessment and plan: Has had elevated blood sugar readings. Is on sliding scale insulin. Hospital medicine following. Current Visit: Yes (10) Tobacco abuse Status: Chronic Current Visit: Yes Cardiology - PN: Subj Interval history: Mr. Crandall is resting in bed upon exam today in no acute distress. He reports he is feeling some better. He continues to receive IV Protonix. I believe he will be going home this afternoon. He was instructed to follow up with GI in 6-8 weeks for repeat EGD. He will follow up with Dr. Erma III in 8 weeks to discuss cholecystectomy. He continues to be in sinus rhythm with well controlled rate. He has an appointment scheduled with Dr. King 11/03/16. Exam (Progress Note) - Constitutional Vitals: Period Temp Pulse Resp BP Sys/Medel Pulse Ox Last 24 Hr 97.0 F-98.9 F 73-97 14-20 143-190/68-82 93-99 Exam: General: Present: Appears Well, No Apparent Distress. Pleasant and cooperative. Appears uncomfortable due to nausea. HEENT: Present: PERRL, Normocephaly, atraumatic. Mucus Membranes Moist. Conjunctiva moist and clear, sclerae anicteric Neck: Present: Supple Neck, Midline Trachea, No Masses, No Bruit Cardiac: Present: Regular Rate and Rhythm, No Murmur Lungs: Present: Clear to auscultation bilaterally, no wheeze, rhonchi, rales. Neuro: Present: Awake, alert, and oriented x3. Moves all extremities well without hemiparesis or paralysis. Grossly Intact. Absent: Resting Tremor, Essential Tremor Abdomen: Present: Soft, Active Bowel Sounds, No Masses, epigastric and right upper quadrant tenderness noted. Skin: Present: Clear. Absent: Rash, No skin breakdown. Musculoskeletal: Present: No Fluid Collection, No Pain, Normal Range of Motion Extremities: Present: Normal Gait, No Clubbing, No Cyanosis, Upper Extr. Pulses 2+, Lower Extr. Pulses 2+, No edema. Capillary refill less than 3 seconds. Result/EKG - Labs CBC & BMP: 09/22/16 04:57 09/22/16 04:57 Lab Results: I have reviewed the past 24 hour labs Labs: Laboratory Results - last 24 hr 09/22/16 09/22/16 09/23/16 15:45 19:29 07:10 POC Glucose 403 H 322 H 219 H 09/23/16 11:30 POC Glucose 335 H - EKG EKG results: interpreted by me, sinus rhythm Quality Measures - Stroke Symptom Onset Unknown: No Specialty Discharge - Follow Up or Referrals Follow up with: Pablo King MD [Physician] - 11/03/16 12:50 pm
--- NOTE | 2016-09-23 15:09 | Discharge Summary ---
Hospital Course - Hospital Course Hospital Course: Mr. Crandall was admitted with complaints of epigastric pain. Right upper quadrant ultrasound was performed which revealed cholelithiasis and abnormality of the distal common duct. Surgery and GI were consulted. GI performed an upper endoscopy and based on results recommended against a cholecystectomy. Cardiology was also consulted and obtained serial troponins. Troponin levels remained stable at around 0.1. Epigastric pain was felt to be secondary to his gastric disease. Patient was placed on PPI and will follow up with gastroenterology in 2 weeks. By discharge she had met maximum benefit of hospitalization. Procedures and tests performed: Gallbladder ultrasound revealed cholelithiasis and hepatic steatosis with mild prominence of distal common duct with consideration for ERCP or MRCP. MRCP: Cholelithiasis with suggestion of edema around the pancreas no abnormality seen besides this. Echocardiogram: Moderate concentric left ventricular hypertrophy with diastolic dysfunction. Left ventricular ejection fraction estimated at 30-40%. Upper endoscopy: Esophagus revealed diffuse erosive esophagitis and gastritis with diffuse ulceration in the duodenum. Pathology revealed acute erosive gastritis with no evidence of H. pylori. - Time spent with patient Time with patient DS: Greater than 30 minutes Diagnosis - Discharge Diagnosis (1) Chest pain Status: Acute (2) Elevated troponin I level Status: Acute (3) Right upper quadrant pain Status: Acute (4) Coronary artery disease Status: Chronic (5) Diabetes mellitus Status: Chronic (6) Esophagitis Status: Acute Specialty Discharge - Follow Up or Referrals Follow up with: Pablo King MD [Physician] - 11/03/16 12:50 pm Discharge Plan - Discharge Data Disposition: Disch To Home/Self Care Condition at Discharge: Stable Discharge Diet: advance to your usual diet Activity: resume usual activities as tolerated - Discharge Medications New HYDROcodone/ACETAMIN 5-325 [[place] 5-325] 1 tablet PO Q4H PRN #20 tablet PRN Reason: Pain Mild (1-3) Carvedilol [Coreg] 12.5 mg PO BID #60 tablet Pantoprazole Tab [Protonix Tab] 40 mg PO DAILY #30 tablet Continue Ondansetron Odt Tab [Zofran Odt] 4 mg PO Q6H PRN PRN Reason: Nausea Cholecalciferol (Vitamin D3) [Vitamin D3] 1,000 unit PO DAILY Insulin Glargine [Lantus] 30 unit SUBCUT BEDTIME metFORMIN [Glucophage] 1,000 mg PO BID [place]-3 Fatty Acids [Fish Oil Concentrate] 2 tablet PO DAILY Lisinopril/Hydrochlorothiazide [Lisinopril-Hctz 20-12.5 mg Tab] 0.5 each PO BID Atorvastatin [Lipitor] 20 mg PO BEDTIME Montelukast Tab [Singulair Tab] 10 mg PO BID Aspirin [Ecotrin] 81 mg PO DAILY Insulin Regular, Human [NovoLIN R] See Protocol SUBCUT DAILY ALPRAZolam [Xanax] 0.25 mg PO Q6H PRN PRN Reason: Anxiety Zolpidem [Ambien] 5 mg PO BEDTIME PRN PRN Reason: Sleep Promethazine Tab [Phenergan Tab] 25 mg PO Q6H PRN PRN Reason: Nausea - Follow Up or Referral Follow Up: Pablo King MD [Physician] - 11/03/16 12:50 pm - Forms/Instructions Instructions: Cholecystitis (DC) Exam - Constitutional Vitals: Period Temp Pulse Resp BP Sys/Medel Pulse Ox Last 24 Hr 97.0 F-98.9 F 73-97 14-20 143-190/68-82 93-99 General appearance: normal weight, no acute distress - Head Head exam: Present: normal inspection, normocephalic, atraumatic - Eye Eye exam: Present: EOMI Pupils: Present: GEMA - ENT ENT exam: Present: normal exam - Neck Neck exam: Present: normal inspection - Respiratory Respiratory exam: Present: clear to auscultation bilaterally - Cardiovascular Cardiovascular exam: Present: regular rate and rhythm. Absent: bradycardia, irregular rhythm, systolic murmur - GI/Abdominal GI/Abdominal exam: Present: normal bowel sounds. Absent: ascites, distended, tenderness - Extremities Exam Extremities exam: Present: normal inspection Discharge Results Labs on day of discharge: Labs from last 24 hours 09/23/16 09/23/16 09/22/16 11:30 07:10 19:29 POC Glucose 335 H 219 H 322 H 09/22/16 15:45 POC Glucose 403 H DS: Provider Date of admission: 09/19/16 16:16 Primary care physician: . No PCP Attending physician on admission: Haley Lipscomb MD Consults: 09/19/16 16:28 Consult to Pharmacy [CONS] Routine Reason for Pharmacy Consult: Adjust Meds Renal Funct 09/21/16 10:19 Consult to Physician [CONS] Routine Comment: Abnormal GB US, + [place] Consulting Provider: Chapo Barcenas 09/21/16 10:57 Consult to Physician [CONS] Routine Comment: suspected cholelithiasis, abn GB US, + [place] Consulting Provider: Bebo Ritchie III. Discharging clinician: Haley Lipscomb MD Expected date of discharge: 09/23/16
== END 2016-09-23 16:43 | disposition home or self-care (01) | DRG 392 ==
LOC: EDUNIT# → EDBD → N.ED 14:04 → N.EDINP 16:16 → N.TELEN 20:06
PROVIDERS: ADMIT Internal Medicine; ATTEND Internal Medicine

== ENCOUNTER 2021-06-08 09:10 | Observation (INO) ==
[2021-06-08 17:11] LABS: Basophils % 0.5 % (0.0-0.8); Eosinophils # 0.4 10*3/uL (0.0-0.87); Eosinophils % 4.5 % (0.00-10.9); Hematocrit 38.3 VOL% (42.0-52.0); Hemoglobin 11.7 GM/DL (14.0-18.0); Immature Granulocytes % 0.8 %; Immature Granulocytes Absolute 0.07 #; Lymphocytes # 2.1 10*3/uL (1.4-4.0); Lymphocytes % 23.4 % (21.2-54.2); Mean Corpuscular HGB Conc 30.5 GM/DL (32-36); Mean Corpuscular Volume 82.5 FL (87-102); Mean Platelet Volume 10.8 FL (9.6-12.0); Monocytes % 8.6 % (1.7-12.7); Neutrophils % 62.2 % (38.7-73.9); Platelet Count 145 T/CUMM (130-400); Red Blood Count 4.64 MC/CUMM (3.8-5.5); Red Cell Distribution Width 15.5 % (9.3-17.3); White Blood Count 8.8 T/CUMM (4-12)
[2021-06-08 17:19] LABS: Alanine Aminotransferase 17 U/L (16-61); Albumin 3.4 G/DL (3.4-5.0); Alkaline Phosphatase 77 U/L (45-117); Aspartate Amino Transferase 11 U/L (0-37); Bilirubin,Total < 0.39 MG/DL (0.20-1.00); Blood Urea Nitrogen 20 MG/DL (7-18); Calcium 9.6 MG/DL (8.5-10.1); Carbon Dioxide 28 MMOL/L (21-32); Estimated Glom Filtration Rate 97 ML/MIN; Glucose 182 MG/DL (74-106); Potassium 4.3 MMOL/L (3.5-5.1); Sodium 136 MMOL/L (136-145); Total Protein 7.1 G/DL (6.4-8.2)
[2021-06-08 17:48] LABS: PT Patient Result 11.1 SECS (10.5-12.0); Partial Thromboplastin Time 26.9 SECS (23.8-32.1)
[2021-06-08] MEDS ORDERED: ONDANSETRON 4 MG/2 ML VIAL IV PRN (19:21)
[2021-06-08] MEDS ORDERED: ACETAMINOPHEN 325 MG TABLET PO PRN (19:21)
[2021-06-08] MEDS ORDERED: GLUCAGON 1 MG VIAL IM PRN ×2 (19:21→19:25)
[2021-06-08] MEDS ORDERED: FUROSEMIDE 40 MG TABLET PO PRN (19:24)
[2021-06-08] MEDS ORDERED: DEXTROSE 50% 25 GM/50 ML SYRINGE IV PRN ×2 (19:25→19:51)
[2021-06-08] MEDS ORDERED: ENOXAPARIN 40 MG/0.4 ML SYRINGE SUBCUT SCH (19:30)
[2021-06-08] MEDS ORDERED: LACTATED RINGERS 1,000 ML IV SCH (19:30)
[2021-06-08] MEDS ORDERED: MONTELUKAST 10 MG TABLET PO SCH (21:00)
[2021-06-08] MEDS ORDERED: INSULIN GLARGINE 100 UNIT/ML SUBCUT SCH (21:00)
[2021-06-08] MEDS ORDERED: ATORVASTATIN 80 MG TABLET PO SCH (21:00)
[2021-06-08] MEDS: carvediloL 12.5 MG TABLET PO SCH (22:45)
[2021-06-08] MEDS: GABAPENTIN 300 MG CAPSULE PO SCH (22:45)
[2021-06-08] MEDS: metFORMIN 500 MG TABLET PO SCH (22:45)
[2021-06-08] MEDS: INSULIN REGULAR 100 UNIT/ML SUBCUT SCH (23:55)
[2021-06-08] MEDS: APIXABAN 5 MG TABLET PO SCH (23:55)
[2021-06-09 06:16] LABS: Basophils % 0.6 % (0.0-0.8); Eosinophils # 0.2 10*3/uL (0.0-0.87); Eosinophils % 3.7 % (0.00-10.9); Hematocrit 35.6 VOL% (42.0-52.0); Hemoglobin 10.9 GM/DL (14.0-18.0); Immature Granulocytes % 0.6 %; Immature Granulocytes Absolute 0.04 #; Lymphocytes # 1.4 10*3/uL (1.4-4.0); Lymphocytes % 21.6 % (21.2-54.2); Mean Corpuscular HGB Conc 30.6 GM/DL (32-36); Monocytes % 8.6 % (1.7-12.7); Neutrophils % 64.9 % (38.7-73.9); Platelet Count 126 T/CUMM (130-400); Red Blood Count 4.29 MC/CUMM (3.8-5.5); Red Cell Distribution Width 15.4 % (9.3-17.3); White Blood Count 6.5 T/CUMM (4-12)
[2021-06-09 06:31] LABS: Calcium 9.8 MG/DL (8.5-10.1); Osmolality,Calculated 284.5 MOS/KG (273-304); Risk Ratio 3.92; VLDL Cholesterol 44.6 MG/DL
[2021-06-09] MEDS ORDERED: ASPIRIN EC 81 MG TABLET PO SCH (09:00)
[2021-06-09] MEDS ORDERED: PANTOPRAZOLE 40 MG TABLET PO SCH (09:00)
[2021-06-09] MEDS: GABAPENTIN 300 MG CAPSULE PO SCH ×2 (09:10→15:27)
[2021-06-09] MEDS: carvediloL 12.5 MG TABLET PO SCH (09:10)
[2021-06-09] MEDS: metFORMIN 500 MG TABLET PO SCH (09:10)
[2021-06-09] MEDS: APIXABAN 5 MG TABLET PO SCH (09:10)
[2021-06-09] MEDS: INSULIN REGULAR 100 UNIT/ML SUBCUT SCH ×3 (09:11→16:41)
[2021-06-09 15:51] VITALS: BP 149/66
[2021-06-10] MEDS ORDERED: POTASSIUM CHLORIDE 20 MEQ TABLET PO SCH (09:00)
== END 2021-06-09 17:15 | disposition home health service (06) ==
LOC: N.ED 09:10 → N.EDINP 19:21 → INTOOBSV 19:21 → N.3E 21:01
PROVIDERS: ADMIT Internal Medicine; ATTEND Internal Medicine